=== PATIENT | female | born 1955 | race Caucasian/White ===

== ENCOUNTER 2016-12-12 11:28 | Inpatient (IN) | payer OTHER ==
[2016-12-12] MEDS ORDERED: fentaNYL 100 MCG/2 ML INJ IVP ONE (11:56)
--- NOTE | 2016-12-12 12:09 | EDPHY ---
H & P Time Seen by Provider: 12/12/16 11:58 HPI/ROS: CHIEF COMPLAINT: Right hip pain HISTORY OF PRESENT ILLNESS: 61-year-old female presents with right hip pain after a fall. She slipped on ice while walking this morning and landed directly onto her right hip. Immediate onset of severe pain and inability to bear weight on the right leg. The pain has persisted and increases with any movement of the hip. She also sustained abrasions to her right hand, but denies pain. She did not hit her head; no headache or neck pain. She last ate at 9:30 a.m. this morning. REVIEW OF SYSTEMS: Constitutional: No weakness Eyes: No visual changes or eye pain ENT: No dental trauma Neck:No pain or injury Respiratory: No shortness of breath Cardiac: No chest pain Gastrointestinal: No abdominal pain, no vomiting Back:No pain or injury Genitourinary: No hematuria Skin: No lacerations Neurological: No headache, no dizziness Past Medical/Surgical History: Denies Social History: Lives in [place] No recent alcohol Smoking Status: Never smoked Physical Exam: General Appearance: Alert, no distress Head: Atraumatic Eyes: No conjunctival erythema, PERRLA, EOMI ENT, Mouth: No hemotympanum, no oral trauma, no bony tenderness Neck: Nontender, full range of motion without pain Respiratory: No chest wall tenderness, lungs clear bilaterally Cardiovascular: Regular rate and rhythm Abdomen: Abdomen is soft and nontender Skin: No lacerations Back: No midline T/L/S tenderness Extremities: Pelvis is stable and nontender; right hip-externally rotated and leg is shortened, tenderness over the right hip; abrasions on the right hand Neurological: A&Ox3, normal motor function, normal sensory exam, cranial nerves intact Psychiatric: Mood and affect normal Constitutional: Initial Vital Signs Temperature (C) 36.3 C 12/12/16 11:30 Heart Rate 79 12/12/16 11:30 Respiratory Rate 16 12/12/16 11:30 Blood Pressure 157/92 H 12/12/16 11:30 O2 Sat (%) 96 12/12/16 11:30 O2 Delivery Mode Room Air Allergies/Adverse Reactions: No Known Allergies Allergy (Unverified 12/12/16 11:32) Home Medications: Medication Instructions Recorded Cetirizine [ZyrTEC 10 mg (*)] 10 mg PO DAILY 12/12/16 Fluticasone Nasal [Flonase Nasal 2 sprays NASAL DAILY 12/12/16 [place] (RX)] Medical Decision Making - Diagnostics EKG Interpretation: EKG interpreted by me reveals normal sinus rhythm, rate 85, low voltage. Imaging: Right hip x-ray independently reviewed by me reveals a femoral neck fracture. ED Course/Re-evaluation: Morphine and Zofran IV given for pain control. X-ray reveals a impacted right femoral neck fracture. Results discussed with patient. Fentanyl IV given initially for pain control followed by morphine IV. The hospitalist service was consulted for admission. Dr. Cabrales, Ortho, was consulted. The patient was NPO throughout her emergency department stay. No evidence of other injuries. Differential Diagnosis: Differential diagnosis includes though it is not limited to open fracture, dislocation, tendon disruption, neurovascular compromise. - Data Points Laboratory Results: Laboratory Results 12/12/16 12:11 12/12/16 12:11 12/12/16 12:11 WBC 11.72 H 10^3/uL (3.80-9.50) RBC 4.73 10^6/uL (4.18-5.33) Hgb 15.0 g/dL (12.6-16.3) Hct 42.2 % (38.0-47.0) MCV 89.2 fL (81.5-99.8) MCH 31.7 pg (27.9-34.1) MCHC 35.5 g/dL (32.4-36.7) RDW 13.2 % (11.5-15.2) Plt Count 249 10^3/uL (150-400) MPV 9.4 fL (8.7-11.7) Neut % (Auto) 82.1 H % (39.3-74.2) Lymph % (Auto) 10.2 L % (15.0-45.0) [place] % (Auto) 6.1 % (4.5-13.0) Eos % (Auto) 0.4 L % (0.6-7.6) Baso % (Auto) 0.3 % (0.3-1.7) Nucleat RBC Rel Count 0.0 % (0.0-0.2) Absolute Neuts (auto) 9.63 H 10^3/uL (1.70-6.50) Absolute Lymphs (auto) 1.20 10^3/uL (1.00-3.00) Absolute Monos (auto) 0.71 10^3/uL (0.30-0.80) Absolute Eos (auto) 0.05 10^3/uL (0.03-0.40) Absolute Basos (auto) 0.03 10^3/uL (0.02-0.10) Absolute Nucleated RBC 0.00 10^3/uL (0-0.01) Immature Gran % 0.9 % (0.0-1.1) Immature Gran # 0.10 10^3/uL (0.00-0.10) Sodium 135 mEq/L (134-144) Potassium 4.2 mEq/L (3.5-5.2) Chloride 105 mEq/L (97-110) Carbon Dioxide 25 mEq/l (22-31) Anion Gap 5 mEq/L (8-16) BUN 21 mg/dL (7-23) Creatinine 0.8 mg/dL (0.6-1.0) Estimated GFR > 60 Glucose 90 mg/dL (70-100) Calcium 9.0 mg/dL (8.5-10.4) 25-OH Vitamin D Total 18.0 L ng/mL (30-100) Medications Given: Discontinued Medications Fentanyl (Sublimaze) 50 mcg IVP EDNOW ONE Stop: 12/12/16 11:57 Last Admin: 12/12/16 12:14 Dose: 50 mcg Morphine Sulfate (Morphine) 6 mg IVP EDNOW ONE Stop: 12/12/16 13:28 Last Admin: 12/12/16 13:33 Dose: 6 mg Ondansetron HCl (Zofran) 4 mg IVP ONCE ONE Stop: 12/12/16 13:28 Last Admin: 12/12/16 13:33 Dose: 4 mg Departure - Departure Disposition: [facility] Acute Clinical Impression: Closed right hip fracture Qualifiers: Encounter type: initial encounter Qualifier Code: (S72.001A) Fracture of unspecified part of neck of right femur, initial encounter for closed fracture Condition: Good
[2016-12-12 13:13] LABS: % IMMATURE GRANULYOCYTES 0.9 % (0.0-1.1); ADD DIFF? NO; ADD MORPH? NO; ADD SCAN? NO; ATYPICAL LYMPHOCYTE FLAG 0 (0-99); FRAGMENT RBC FLAG 0 (0-99); HEMATOCRIT 42.2 % (38.0-47.0); LEFT SHIFT FLG 0 (0-99); LIPEMIA HEMOLYSIS FLAG 90 (0-99); MEAN CELL HEMOGLOBIN 31.7 pg (27.9-34.1); MEAN CELL HEMOGLOBIN CONCENTR. 35.5 g/dL (32.4-36.7); MEAN CELL VOLUME 89.2 fL (81.5-99.8); MEAN PLATELET VOLUME 9.4 fL (8.7-11.7); PLATELET CLUMPS FLAG 0 (0-99); PLATELET COUNT 249 10^3/uL (150-400); RED BLOOD CELL COUNT 4.73 10^6/uL (4.18-5.33); RED CELL DISTRIBUTION WIDTH 13.2 % (11.5-15.2)
[2016-12-12 13:18] LABS: ANION GAP 5 mEq/L (8-16); CARBON DIOXIDE 25 mEq/l (22-31); CHLORIDE 105 mEq/L (97-110); CREATININE 0.8 mg/dL (0.6-1.0); GLOMERULAR FILTRATION RATE > 60; GLUCOSE 90 mg/dL (70-100); POTASSIUM 4.2 mEq/L (3.5-5.2); SODIUM 135 mEq/L (134-144)
[2016-12-12] MEDS ORDERED: ONDANSETRON 4 MG/2 ML VIAL ONE ×2 (13:23→18:53)
[2016-12-12] MEDS ORDERED: ONDANSETRON 4 MG/2 ML VIAL IVP ONE (13:27)
--- NOTE | 2016-12-12 13:45 | DX ---
Right hip 2 views History: Fall, slipped on ice, pain. Comparison: None. Findings: Right hip demonstrates a fracture line of the femoral neck subcapital region with minimal d isplacement. No dislocation. No evidence of significant degenerative changes, joint space narrowing, or osteophytes. No destructive osseous lesions. Impression: Right femoral neck subcapital fracture.
--- NOTE | 2016-12-12 13:59 | CPEKG ---
Heart Rate: 85 RR Interval: 706 P-R Interval: 184 QRSD Interval: 86 QT Interval: 390 QTC Interval: 464 P [place]: 76 QRS [place]: 63 T Wave [place]: 47 EKG Severity - BORDERLINE ECG - EKG Impression: SINUS RHYTHM EKG Impression: PROBABLE LEFT ATRIAL ABNORMALITY EKG Impression: LOW VOLTAGE IN FRONTAL LEADS EKG Impression: BORDERLINE T WAVE ABNORMALITIES Electronically Signed By: Cammie Celestin 12-Dec-2016 15:40:36
--- NOTE | 2016-12-12 14:19 | PDGENHP ---
History and Physical - Chief Complaint slip and fall - History of Present Illness 61 y/o female slipped and fell on ice while walking to her car from her house at 0945 this morning. She reports immediate severe pain in her right hip. She was unable to stand or get up from her fall. She denies any head trauma or LOC. She has been in her usual state of health with the exception of wheezing and increased shortness of breath over the past few months. This has been worked up by her pcp on an outpatient basis. She does not routinely exercise, but [place] and considers herself active. She denies any exertional chest pain. History Information - Allergies/Home Medication List Allergies/Adverse Reactions: No Known Allergies Allergy (Unverified 12/12/16 11:32) I have personally reviewed and updated: family history, medical history, social history, surgical history Past Medical History: OA, Osteopenia, Carpal Tunnel Syndrome, Retinal Detachment , GERD, Bipolar/Depression - Surgical History Additional surgical history: Bilat Carpal Tunnel Release, Detached Retina repair x2 - Family History Additional family history: chf parents. brain aneurysm in brother - Social History Smoking Status: Never smoked Alcohol Use: Occasionally Drug Use: None Review of Systems ROS: 10pt was reviewed & negative except for what was stated in HPI & below Respiratory: Reports: shortness of breath, wheezing Physical Exam Temp Pulse Resp BP Pulse Ox 36.3 C 88 16 131/81 H 95 12/12/16 14:00 12/12/16 14:00 12/12/16 14:00 12/12/16 14:00 12/12/16 14:00 Constitutional: no apparent distress, appears nourished, not in pain Ears, Nose, Mouth, Throat: moist mucous membranes, hearing normal, ears appear normal, no oral mucosal ulcers Cardiovascular: regular rate and rhythym, no murmur, rub, or gallop, No JVD, No edema Respiratory: no respiratory distress, no rales or rhonchi, clear to auscultation , No expiratory wheeze, No rhonchi Gastrointestinal: normoactive bowel sounds, soft, non-tender abdomen, no palpable masses Genitourinary: no bladder fullness Skin: warm, normal color, no rashes or abrasions, no fluctuance, no induration, No mottled Musculoskeletal: full muscle strength, no joint effusions, other (right leg held in exerternal rotation) Neurologic: AAOx3, CN II-XII Intact, No facial droop Psychiatric: interacting appropriately, not anxious, not encephalopathic, thought process linear Lymph, Heme, Immunologic: no cervical LAD, no supraclavicular LAD Lab Data & Imaging Review 12/12/16 12:11 12/12/16 12:11 WBC 11.72 10^3/uL (3.80-9.50) H 12/12/16 12:11 RBC 4.73 10^6/uL (4.18-5.33) 12/12/16 12:11 Hgb 15.0 g/dL (12.6-16.3) 12/12/16 12:11 Hct 42.2 % (38.0-47.0) 12/12/16 12:11 MCV 89.2 fL (81.5-99.8) 12/12/16 12:11 MCH 31.7 pg (27.9-34.1) 12/12/16 12:11 MCHC 35.5 g/dL (32.4-36.7) 12/12/16 12:11 RDW 13.2 % (11.5-15.2) 12/12/16 12:11 Plt Count 249 10^3/uL (150-400) 12/12/16 12:11 MPV 9.4 fL (8.7-11.7) 12/12/16 12:11 Neut % (Auto) 82.1 % (39.3-74.2) H 12/12/16 12:11 Lymph % (Auto) 10.2 % (15.0-45.0) L 12/12/16 12:11 [place] % (Auto) 6.1 % (4.5-13.0) 12/12/16 12:11 Eos % (Auto) 0.4 % (0.6-7.6) L 12/12/16 12:11 Baso % (Auto) 0.3 % (0.3-1.7) 12/12/16 12:11 Nucleat RBC Rel Count 0.0 % (0.0-0.2) 12/12/16 12:11 Absolute Neuts (auto) 9.63 10^3/uL (1.70-6.50) H 12/12/16 12:11 Absolute Lymphs (auto) 1.20 10^3/uL (1.00-3.00) 12/12/16 12:11 Absolute Monos (auto) 0.71 10^3/uL (0.30-0.80) 12/12/16 12:11 Absolute Eos (auto) 0.05 10^3/uL (0.03-0.40) 12/12/16 12:11 Absolute Basos (auto) 0.03 10^3/uL (0.02-0.10) 12/12/16 12:11 Absolute Nucleated RBC 0.00 10^3/uL (0-0.01) 12/12/16 12:11 Immature Gran % 0.9 % (0.0-1.1) 12/12/16 12:11 Immature Gran # 0.10 10^3/uL (0.00-0.10) 12/12/16 12:11 Sodium 135 mEq/L (134-144) 12/12/16 12:11 Potassium 4.2 mEq/L (3.5-5.2) 12/12/16 12:11 Chloride 105 mEq/L (97-110) 12/12/16 12:11 Carbon Dioxide 25 mEq/l (22-31) 12/12/16 12:11 Anion Gap 5 mEq/L (8-16) 12/12/16 12:11 BUN 21 mg/dL (7-23) 12/12/16 12:11 Creatinine 0.8 mg/dL (0.6-1.0) 12/12/16 12:11 Estimated GFR > 60 12/12/16 12:11 Glucose 90 mg/dL (70-100) 12/12/16 12:11 Calcium 9.0 mg/dL (8.5-10.4) 12/12/16 12:11 Visualized and Interpreted imaging results: Yes Interpretation: Hip xray: Right femoral neck subcapital fracture. Visualized and Interpreted EKG results: Yes EKG Interpretation: Positive for: normal sinsus rhythm (HR 85 BPM). Negative for: ST elevation, ST depression Assessment & Plan Assessment: 61 y/o female s/p slip and fall on ice sustaining: # Acute Closed Right subcapital femoral neck fracture with minimal displacement -Dr. Cabrales from Ortho has been consulted by the ED -Will keep NPO for now -Patient may proceed to the OR without any further cardiac testing # Mild leukocytosis without obvious source of infection suspect stress demargination -monitor # History of Osteopenia -recommend outpt DEXA -will check vitamin D (25-OH) and calcium levels # History of BiPolar depression # History of wheezing and exertional shortness of breath -await cxr ordered in the ED -recommend outpatient workup with pcp unless she is noted to have hypoxemia while in house. # GERD -cont dose of PPI # Elevated BP liekly due to pain -monitor LMWH for DVT-p
--- NOTE | 2016-12-12 14:55 | DX ---
Chest, PA and Lateral History: Hip fracture earlier today slipping on ice Comparison: None Findings: A small oblique density overlying the heart on the lateral view is consistent with either a lingular scar or small plate of atelectasis. There is no evidence for fat embolism. Heart size and p ulmonary vascularity are normal. There is no adenopathy or mass lesion. There is no pleural effusion or pneumothorax. No fracture is identified. Impression: 1. Scar versus platter atelectasis in the lingula. 2. No definite acute posttraumatic abnormality identified.
[2016-12-12] MEDS ORDERED: LACTULOSE 20 GM/30 ML UDCUP PO PRN (14:56)
[2016-12-12] MEDS ORDERED: HYDROmorphONE/DILAUDID 2 MG/ML SYR IVP PRN (14:56)
[2016-12-12] MEDS ORDERED: MAGNESIUM HYDROXIDE 30 ML UDCUP PO PRN (14:56)
[2016-12-12] MEDS ORDERED: ONDANSETRON 4 MG/2 ML VIAL IVP PRN (14:56)
[2016-12-12] MEDS ORDERED: BISACODYL 10 MG SUPP PR PRN (14:56)
[2016-12-12] MEDS ORDERED: POLYETHYLENE GLYCOL 3350 17 GM PKT PO PRN (14:56)
[2016-12-12] MEDS ORDERED: ZOLPIDEM TARTRATE 5 MG TAB PO PRN (14:56)
[2016-12-12] MEDS ORDERED: PROMETHAZINE HCL 25 MG/ML INJ IVP PRN (14:56)
[2016-12-12] MEDS ORDERED: CEFAZOLIN 2 GM/DEXTROSE/100 ML BAG IV ONE (17:51)
[2016-12-12] MEDS ORDERED: ceFAZolin 2 GM/DEXTROSE 100 ML IV ONE (18:00)
[2016-12-12] MEDS ORDERED: MIDAZOLAM 2 MG/2 ML VIAL ONE (18:09)
[2016-12-12] MEDS ORDERED: BUPIVACAINE/EPI 0.5% 30 ML SDV ONE (18:10)
[2016-12-12] MEDS ORDERED: PROPOFOL 200 MG/20 ML VIAL ONE (18:19)
[2016-12-12] MEDS ORDERED: fentaNYL 100 MCG/2 ML INJ ONE ×2 (18:19→19:39)
[2016-12-12] MEDS ORDERED: PROPOFOL/EMULSION 500 MG/50 ML BOTTLE IV ONE (18:36)
[2016-12-12] MEDS ORDERED: epHEDrine SULFATE 10 MG/ML SYR ONE ×2 (18:38→18:40)
[2016-12-12] MEDS ORDERED: DEXAMETHASONE 4 MG/ML VIAL ONE (18:53)
--- NOTE | 2016-12-12 20:21 | DX ---
Fluoroscopy Provided for Right Hip Surgery at 1857 hours Indication: Right femoral neck fracture. Fluoroscopy time: 163.8 seconds. Dose: 32.01 mGy. Technique: Three intraoperative spot films were submitted. Findings: The initial film reveals a radiopaque localizer overlying the right femoral neck. The fin al two images reveal placement of three cannulated screws in the right femoral neck transfixing the f emoral head fracture fragment in anatomic alignment. Impression: Fluoroscopy provided for open reduction internal fixation of right femoral neck fractur e.
--- NOTE | 2016-12-12 20:26 | POSTOPPROG ---
Post Op Note Date of Operation: 12/12/16 Surgeon: Hosea Cabrales Anesthesia: GET(General Endotracheal) Pre-op Diagnosis: Right hip fracture Post-op Diagnosis: Same Procedure: ORIF with 3 screws Findings: Synthes 6.5mm canulated screws Inf/Abcess present in the surg proc area at time of surgery?: No EBL: Minimal
[2016-12-12] MEDS ORDERED: MEPERIDINE 25 MG/ML SYR ONE (20:31)
[2016-12-12] MEDS: oxyCODONE IR 5 MG TAB PO PRN (21:52)
[2016-12-12] MEDS: SENNOSIDES/DOCUSATE SODIUM TAB PO SCH (21:53)
[2016-12-13] MEDS: ceFAZolin 2 GM/DEXTROSE 100 ML IV SCH ×3 (02:19→10:33)
[2016-12-13] MEDS: oxyCODONE IR 5 MG TAB PO PRN ×5 (04:11→23:15)
--- NOTE | 2016-12-13 05:37 | GOP ---
[f rep st] OPERATIVE REPORT DATE OF OPERATION: 12/12/2016 SURGEON: Hosea Cabrales MD PREOPERATIVE DIAGNOSIS: Right femoral neck impacted fracture. POSTOPERATIVE DIAGNOSIS: Right femoral neck impacted fracture. PROCEDURE PERFORMED: Open repair with screw fixation of right femoral neck fracture. FINDINGS: Three cannulated 6.3 mm short thread cannulated cancellous screws were utilized for qa internship al fixation of her impacted valgus right hip fracture. INDICATIONS: The patient is a 61-year-old woman, who slipped on the ice today, sustaining the above injury. Due to the impacted nature of this, she is brought to the operating room for definitive surg ical management. DESCRIPTION OF PROCEDURE: After routinely checking the patient's identification and consent, and suc cessful induction of LMA general anesthetic, the patient was assembled on the fracture table. No tra ction was utilized, but the table was used essentially for positioning. The right hip was now visual ized with the FluoroScan unit. I internally rotated this until I had a parallel view of the femoral shaft neck, which was roughly at 30 degrees of internal rotation. Once this was completed, the genaro nt's right hip was prepped and draped in the usual standard fashion. A surgical timeout was complete d. A short longitudinal incision distal to the vastus ridge, was carried sharply through the skin. I spread bluntly through the subcutaneous layer and then incised the IT band sharply. I dissected do wn to the vastus ridge. I used an aiming device to identify an appropriate angle. This was relative ly steeper than the original 135 degree angle of her hip, due to the impacted nature of her valgus po sition. With a guidewire placed, I placed 2 more guidewires parallel, but 1 inferior anterior, 1 inf erior posterior to the original wire, with these placed slightly superior in the head for optimal pos itioning. I measured the indwelling portion of the guidewire and then advanced the screws after pred rilling the lateral cortex only. The screws gained excellent purchase. The wound was irrigated. Th e IT band was closed with 0-Vicryl suture, the subcutaneous layer with 2-0 Vicryl suture, and the ski n with subcuticular 4-0 Monocryl, followed by the application of Steri-Strips. 0.25% Marcaine plus e pinephrine was infiltrated around the skin incision prior to making this, and then I injected deeply all the way down to the femoral cortex with a spinal needle, once skin was closed. A total of 20 mL of 0.25% Marcaine plus epinephrine was utilized at the conclusion of the case. A sterile bulky dress ing was applied and the patient was from the fracture table and transferred to her hospital bed, where she was extubated. She was transferred to the recovery area in excellent condition. She tolerated the procedure well. There were no complications. /[id number]/MODL
--- NOTE | 2016-12-13 07:51 | SOAPPROG ---
[facility] Progress Note Assessment/Plan: Assessment/Plan: 61y/o F s/p open repair with screw fixation impacted R femoral neck fracture POD#1 - NWB RLE - Continue pain management - Continue PT/OT - Continue SCDs for mechanical DVT prophylaxis - Continue LMWH for chemoprophylaxis - Change dressing as needed 12/13/16 07:47 12/13/16 07:49 Subjective: 61y/o F s/p open repair with screw fixation impacted R femoral neck fracture Pt states she is doing well this morning. She has no pain in the R hip when lying in bed. Pain increases to a 4/10 when she tries to move. Pt was able to sit on the edge of the bed this morning, but then started to feel lightheaded and had one episode of emesis. PT evaluate today. Pt denies fever, chills, chest pain, SOB, abdominal pain, numbness, tingling, and calf pain. Objective: VSS, afebrile, SCDs in place Vital Signs Temp Pulse Resp BP Pulse Ox 37.0 C 92 18 117/80 90 L 12/13/16 04:00 12/13/16 04:00 12/13/16 04:00 12/13/16 04:00 12/13/16 04:00 12/12/16 12/13/16 12/14/16 05:59 05:59 05:59 Intake Total 2100 Output Total 1475 Balance 625 Physical Exam - Physical Exam General Appearance: alert, no apparent distress Skin: normal color, warm/dry, other (Incision site c/d/i; no ecchymosis) Extremities: normal inspection, normal capillary refill, No pedal edema, No calf tenderness, No swelling, No Chris's sign Neuro/Psych: no motor/sensory deficits, alert, normal mood/affect ICD10 Worksheet Patient Problems: Problems Problem Status Diagnosed Closed right hip fracture Acute
[2016-12-13] MEDS: ENOXAPARIN 40 MG/0.4 ML SYR SC SCH (08:08)
[2016-12-13] MEDS: ACETAMINOPHEN 325 MG TAB PO PRN ×3 (08:09→23:15)
[2016-12-13] MEDS: SENNOSIDES/DOCUSATE SODIUM TAB PO SCH ×2 (08:10→21:24)
[2016-12-13] MEDS ORDERED: ceFAZolin 2 GM in D5W 100 ML IV SCH (10:00)
--- NOTE | 2016-12-13 13:57 | HOSPPROG ---
Hospitalist Progress Note Assessment/Plan: 61 y/o female s/p slip and fall on ice. This is my first encounter with the patient. Chart reviewed. # Acute Closed Right subcapital femoral neck fracture with minimal displacement -Dr. Cabrales from Ortho has been consulted by the ED -POD #1 # Mild leukocytosis without obvious source of infection suspect stress demargination -monitor -check labs in am # History of Osteopenia -recommend outpt DEXA -vitamin D (25-OH) low, replace # History of BiPolar depression # History of wheezing and exertional shortness of breath -cxr scarring -recommend outpatient workup with pcp unless she is noted to have hypoxemia while in house. # GERD -cont dose of PPI # Elevated BP likely due to pain -monitor LMWH for DVT-p # [facility] patient Will need rehab Subjective: Up in the chair. Pain controlled. No specific issues. Objective: Vital Signs Temp Pulse Resp BP Pulse Ox 36.5 C 89 16 122/78 H 92 12/13/16 12:00 12/13/16 12:00 12/13/16 12:00 12/13/16 12:00 12/13/16 12:00 12/12/16 12/13/16 12/14/16 05:59 05:59 05:59 Intake Total 2100 500 Output Total 1475 700 Balance 625 -200 - Physical Exam Constitutional: no apparent distress, appears nourished, not in pain Eyes: PERRL, anicteric sclera, EOMI Ears, Nose, Mouth, Throat: moist mucous membranes, hearing normal, ears appear normal Cardiovascular: regular rate and rhythym, No JVD, No edema Gastrointestinal: normoactive bowel sounds, No tenderness, No ascites Skin: warm, normal color, No erythema Musculoskeletal: no joint effusions, generalized weakness, No normal joint ROM Neurologic: AAOx3 Psychiatric: interacting appropriately, not anxious, not encephalopathic ICD10 Worksheet Patient Problems: Problems Problem Status Diagnosed Closed right hip fracture Acute
[2016-12-14] MEDS: oxyCODONE IR 5 MG TAB PO PRN ×3 (04:52→16:41)
[2016-12-14 05:32] LABS: HEMATOCRIT 35.6 % (38.0-47.0); HEMOGLOBIN 12.3 g/dL (12.6-16.3); MEAN CELL HEMOGLOBIN 31.5 pg (27.9-34.1); MEAN CELL HEMOGLOBIN CONCENTR. 34.6 g/dL (32.4-36.7); RED BLOOD CELL COUNT 3.91 10^6/uL (4.18-5.33); RED CELL DISTRIBUTION WIDTH 13.3 % (11.5-15.2)
--- NOTE | 2016-12-14 07:35 | SOAPPROG ---
[facility] Progress Note Assessment/Plan: Assessment/Plan: 61y/o F s/p open repair with screw fixation impacted R femoral neck fracture POD#2 - NWB RLE - Flexaril ordered for muscle spasma - Continue pain management - Continue PT/OT - Continue SCDs for mechanical DVT prophylaxis - Continue LMWH for chemoprophylaxis - Change dressing as needed - Possible discharge to rehab today 12/13/16 07:47 12/13/16 07:49 12/14/16 07:34 Subjective: Pt states she her pain is well-controlled, but did have muscle spasms in the right leg throughout the night. Pt was up with PT yesterday with success. Nausea and vomiting have resolved. Pt denies fever, chills, chest pain, SOB, abdominal pain, nausea, vomiting, numbness, tingling, and calf pain. Objective: Vital Signs Temp Pulse Resp BP Pulse Ox 37.2 C 93 19 107/81 H 93 12/14/16 00:00 12/14/16 00:00 12/14/16 00:00 12/14/16 00:00 12/14/16 00:00 Laboratory Results 12/14/16 05:02 12/13/16 12/14/16 12/15/16 05:59 05:59 05:59 Intake Total 2100 2200 Output Total 1475 3150 Balance 625 -950 Physical Exam - Physical Exam General Appearance: alert, no apparent distress Skin: normal color, warm/dry, other (Incision site c/d/i; no ecchymosis) Extremities: normal inspection, normal capillary refill, No pedal edema, No calf tenderness, No swelling, No Chris's sign Neuro/Psych: no motor/sensory deficits, alert, normal mood/affect ICD10 Worksheet Patient Problems: Problems Problem Status Diagnosed Closed right hip fracture Acute
[2016-12-14 08:18] VITALS: BP 119/71; PULSE 89; RESP 16; TEMP 97.8; O2SAT 98
[2016-12-14] MEDS ORDERED: CETIRIZINE 10 MG TAB PO SCH (09:00)
[2016-12-14] MEDS ORDERED: ERGOCALCIFEROL 50,000 I.UNIT CAP PO SCH (09:00)
[2016-12-14] MEDS ORDERED: FLUTICASONE NASAL 120 SPRAYS/16 GM MDI EACHNARE SCH (09:00)
[2016-12-14] MEDS: CYCLOBENZAPRINE 10 MG TAB PO SCH ×2 (09:30→15:37)
[2016-12-14] MEDS: ENOXAPARIN 40 MG/0.4 ML SYR SC SCH (09:30)
[2016-12-14] MEDS: SENNOSIDES/DOCUSATE SODIUM TAB PO SCH (09:30)
--- NOTE | 2016-12-14 11:04 | HOSPPROG ---
Hospitalist Progress Note Assessment/Plan: 61 y/o female s/p slip and fall on ice.Reviewed with CM. # Acute Closed Right subcapital femoral neck fracture with minimal displacement -Dr. Cabrales from Ortho has been consulted by the ED -POD #2 -NWB # Mild leukocytosis without obvious source of infection suspect stress demargination -resolved, acute response # History of Osteopenia -recommend outpt DEXA -vitamin D (25-OH) low, replace # History of BiPolar depression -stable # History of wheezing and exertional shortness of breath -cxr scarring -recommend outpatient workup with pcp unless she is noted to have hypoxemia while in house. # GERD -cont dose of PPI # Elevated BP likely due to pain -monitor LMWH for DVT-p # Dispo [facility] patient Will need rehab To [facility] in the am. Subjective: Up in the chair. Feels well. Pain controlled. Objective: Vital Signs Temp Pulse Resp BP Pulse Ox 36.6 C 89 16 119/71 98 12/14/16 08:16 12/14/16 08:16 12/14/16 08:16 12/14/16 08:16 12/14/16 08:16 Laboratory Results 12/14/16 05:02 12/13/16 12/14/16 12/15/16 05:59 05:59 05:59 Intake Total 2100 2200 Output Total 1475 3150 200 Balance 625 -950 -200 - Physical Exam Constitutional: no apparent distress, appears nourished Eyes: PERRL, anicteric sclera, EOMI Ears, Nose, Mouth, Throat: moist mucous membranes, hearing normal, ears appear normal, no oral mucosal ulcers Cardiovascular: regular rate and rhythym, no murmur, rub, or gallop, No JVD Respiratory: no respiratory distress, no rales or rhonchi, clear to auscultation Gastrointestinal: normoactive bowel sounds, soft, non-tender abdomen, no palpable masses Skin: warm, normal color Musculoskeletal: abnormal gait, generalized weakness Neurologic: AAOx3 Psychiatric: interacting appropriately, not anxious, not encephalopathic ICD10 Worksheet Patient Problems: Problems Problem Status Diagnosed Closed right hip fracture Acute
[2016-12-14] MEDS: ACETAMINOPHEN 325 MG TAB PO PRN (12:02)
--- NOTE | 2016-12-14 14:21 | PDIAF ---
- Diagnosis Diagnosis: hip fx Code Status: Full Code - Medication Management Discharge Medications: Medications to Continue on Transfer Cetirizine [ZyrTEC 10 mg (*)] 10 mg PO DAILY 12/12/16 [Last Taken 12/12/16] Fluticasone Nasal [Flonase Nasal [place]] 2 sprays NASAL DAILY 12/12/16 [Last Taken 12/12/16] Acetaminophen [Tylenol 325mg (*)] 650 mg PO Q6 PRN #0 tab 12/14/16 [Last Taken Unknown] Cyclobenzaprine [Flexeril 10 MG (*)] 10 mg PO TID #0 tab 12/14/16 [Last Taken Unknown] Enoxaparin [Lovenox 40 MG (*)] 40 mg SC DAILY #0 syr 12/14/16 [Last Taken Unknown] Ergocalciferol [Vitamin D2 (*)] 50,000 i.unit PO DAILY #0 cap 12/14/16 [Last Taken Unknown] Polyethylene Glycol 3350 [Miralax 17 gm (*)] 17 gm PO DAILY PRN #0 pkt 12/14/16 [Last Taken Unknown] Sennosides/Docusate Sodium [Senokot-S] 1 - 2 tab PO BID #0 tab 12/14/16 [Last Taken Unknown] oxyCODONE IR [Oxycodone Ir (*)] 5 - 10 mg PO Q4 PRN #40 tab 12/14/16 [Last Taken Unknown] Discharge Medications: Refer to the Discharge Home Medication list for PRN reason. PICC Care - Routine: N/A - Orders Services needed: Physical Therapy, Occupational Therapy - Follow Up Care Current Providers and Referrals: [place],. [Primary Care Provider] - Hosea Cabrales MD [Medical Doctor] - (Call the office to schedule a follow-up appointment 6 weeks post-operatively)
--- NOTE | 2016-12-14 16:28 | GDS ---
[f rep st] DISCHARGE SUMMARY DISCHARGE DIAGNOSES: 1. Right subcapital femoral neck fracture. 2. Leukocytosis. 3. History of osteopenia. 4. History of bipolar disorder. 5. Gastroesophageal reflux disease. CONSULTATIONS: Dr. Cabrales of Orthopedics. STUDIES AND PROCEDURES DONE: ORIF of the right hip. HOSPITAL COURSE: The patient is a 61-year-old female, who suffered a mechanical fall. She Presented to the emergency room with complaints of hip pain. She was evaluated and diagnosed with: 1. Right femoral neck fracture. During this hospitalization, she received a consultation from Dr. Nadja brambila of Orthopedics. Surgical intervention was performed with an ORIF. The patient is postop day 2 a nd nonweightbearing given this condition. She will continue need to require outpatient rehabilitatio n and strengthening given her acute fracture. 2. Mild leukocytosis. This has resolved and was secondary to acute response of her hip fracture. 3. History of osteopenia. The patient's vitamin D level was low during this hospitalization. She h as been started on oral replacement. 4. History of bipolar disorder. This is stable. DISPOSITION: The patient will be discharged to [facility] facility for further rehabilitation and management. There are no pending studies. DISCHARGE MEDICATIONS: Please refer to EMR form. The patient's vitamin D is a new addition to her m edication regimen. FOLLOWUP: Will be with Dr. Cabrales, the patient's primary orthopedist, as well as her primary care phys ician at [facility]. I spent greater than 35 minutes in the care, coordination, and management of this patient's dispositi on. /[id number]/MODL
== END 2016-12-14 16:57 | DRG 482 ==
LOC: F3N 14:58
PROVIDERS: ADMIT Hospitalist; ATTEND Family Medicine
PROC: 0QS604Z Reposition Right Upper Femur with Internal Fixation Device, Open Approach (ICD-10-PCS; principal; 2016-12-12 17:15)
DX: S72.011A Unspecified intracapsular fracture of right femur, initial encounter for closed fracture (principal); K21.9 Gastro-esophageal reflux disease without esophagitis; F31.9 Bipolar disorder, unspecified; M85.80 Other specified disorders of bone density and structure, unspecified site; W01.0XXA Fall on same level from slipping, tripping and stumbling without subsequent striking against object, initial encounter
CPT/HCPCS: 96374; 97116-GP; 97161-GP; 97165-GO; 97535-GO; C1713; C1769; J0690; J1100; J1170; J1650; J2250; J2405; J2704; J3010